=== PATIENT | male | born 1955 | race Caucasian/White ===

== ENCOUNTER 2024-04-27 20:41 | Emergency (ER) | payer MEDICARE, SELFPAY ==
[2024-04-27 20:43] VITALS: BP 106/70; PULSE 110; TEMP 37.1; O2SAT 96; BMI 26.4
--- NOTE | 2024-04-27 20:56 | XR_ITS ---
The [address] [address] Patient Name: KRISTOFER MOSES MRN: [id number] date: 1955 Sex: M Assigned Patient Location: ER Current Patient Location: ER Accession/Order Number: [id number] Exam Date: 04/27/2024 21:44 Report Date: 04/27/2024 22:46 At the request of: NELLY CH Procedure: XR abdomen 1V XR abdomen 1V, 04/27/2024 8:44 PM CDT: History: poss constipation. Comparison: None. Technique: 1 view abdomen Findings: The bowel gas pattern is nonobstructive. There is no evidence of free intra-abdominal air. There is no evidence of organomegaly or abnormal intra-abdominal calcifications. There is a normal to moderate colonic stool burden. XR/XR abdomen 1V Impression: Nonobstructive bowel gas pattern without evidence of free air. Electronically authenticated by: ARGENIS OSBORNE Date: 04/27/2024 22:46
--- NOTE | 2024-04-27 21:11 | ED_ITS ---
HPI HPI - General Adult General Chief complaint: Wound/Laceration Stated complaint: RECTAL PAIN Time Seen by Provider: 04/27/24 20:50 Source: patient and medical record Mode of arrival: ambulance Limitations: no limitations History of Present Illness HPI narrative: 69-year-old male presents to the emergency department for pain in his perianal area. He is from [facility] and is transported here by ambulance. He reports that he has had some burning in his perianal area for the last day. He cannot provide a history of any bleeding or not. He denies abdominal pain. Related Data Allergies Allergy/AdvReac Type Severity Reaction Status Date / Time No Known Drug Allergies Allergy Verified 04/27/24 20:43 Opioid HPI Opioid Management Most Recent Opioid Data: Last Pain Scale 6 04/27/24 21:06 Last ED Pain Assessment 04/27/24 21:06 Review of Systems ROS Narrative Unobtainable, age Exam Narrative Exam Narrative: Nurses note and vital signs reviewed and patient is not hypoxic. General: The patient appears in no apparent distress. Skin: Warm, dry, no pallor noted. There is no rash noted. Head: Normocephalic, atraumatic Eye: Normal conjunctiva, no drainage Ears, Nose, Mouth, and Throat: oral mucosa is moist. Nares patent. Cardiovascular: Regular Rate and Rhythm Respiratory: Patient is in no distress, no accessory muscle use, lungs are clear to auscultation, no wheezing, rales or rhonchi Back: non-tender GI: Soft and nontender. Perianal area shows erythema but no hemorrhoid or fissure. There is a skin tag present. When he was rolled on his side and his perineal area was exposed he was having a bowel movement of soft brown stool. This was wiped away and the perianal was able to be examined and is as described. There is no skin breakdown. Musculoskeletal: The patient has no evidence of calf tenderness, no pitting edema, symmetrical pulses noted bilaterally Neurological: Awake and alert Psychiatric: Cooperative Constitutional Vital Signs, click to edit/add: Last Vital Signs Temp 98.7 F 04/27/24 20:43 Pulse 95 H 04/28/24 00:06 Resp 18 04/28/24 00:06 BP 122/78 04/28/24 00:06 Pulse Ox 94 L 04/28/24 00:06 O2 Del Method Room Air 04/28/24 00:06 Course Vital Signs Vital signs: Vital Signs Temperature 98.7 F 04/27/24 20:43 Pulse Rate 110 H 04/27/24 20:43 Respiratory Rate 20 04/27/24 20:43 Blood Pressure 106/70 04/27/24 20:43 Pulse Oximetry 96 04/27/24 20:43 Oxygen Delivery Method Room Air 04/27/24 20:43 Temperature 98.7 F 04/27/24 20:43 Pulse Rate 95 H 04/28/24 00:06 Respiratory Rate 18 04/28/24 00:06 Blood Pressure 122/78 04/28/24 00:06 Pulse Oximetry 94 L 04/28/24 00:06 Oxygen Delivery Method Room Air 04/28/24 00:06 Medical Decision Making MDM Narrative Medical decision making narrative: On exam there is minimal erythema in the perianal area. CAT scan shows no acute findings per radiologist. There are no hemorrhoids or fissures. Findings are discussed thoroughly with the patient's and the patient and he is released back to the long term. Differential Diagnosis Differential Diagnosis: Hemorrhoid, anal fissure, abscess Lab Data Lab results reviewed: Yes I reviewed the patient's lab results Labs: Lab Results 04/27/24 Range/Units 21:45 WBC 7.5 (4.0-11.0) 10^3/uL RBC 3.83 L (4.70-6.10) 10^6/uL Hgb 10.5 L (14.0-18.0) g/dL Hct 34.5 L (42.0-54.0) % MCV 90.1 (80.0-94.0) fL MCH 27.4 (25.9-34.0) pg MCHC 30.4 (29.9-35.2) g/dL RDW 17.2 H (11.0-15.0) % Plt Count 392 (150-450) 10^3/uL MPV 9.0 L (9.5-13.5) fL Neut % (Auto) 74.3 (43.0-75.0) % Lymph % (Auto) 13.0 L (20.5-60.0) % [place] % (Auto) 8.1 (1.7-12.0) % Eos % (Auto) 3.6 (0.9-7.0) % Baso % (Auto) 0.7 (0.2-2.0) % Neut # (Auto) 5.5 (1.4-6.5) 10^3/uL Lymph # (Auto) 1.0 L (1.2-3.8) 10^3/uL [place] # (Auto) 0.6 (0.3-0.8) 10^3/uL Eos # (Auto) 0.3 (0.0-0.7) 10^3/uL Baso # (Auto) 0.1 (0.0-0.1) 10^3/uL Abs Immat Gran (auto) 0.02 (0.00-0.03) 10^3/uL Imm/Tot Granulo (auto) 0.3 (0.0-0.5) % Sodium 136 (136-145) mmol/L Potassium 4.0 (3.5-5.1) mmol/L Chloride 102 (98-107) mmol/L Carbon Dioxide 27.5 (21.0-32.0) mmol/L Anion Gap 10.5 BUN 15.0 (7.0-18.0) mg/dL Creatinine 0.75 (0.70-1.30) mg/dL Est GFR ( Amer) >60 (>=60) Est GFR (Non-Af Amer) >60 (>=60) BUN/Creatinine Ratio 20.0 Glucose 154 H (74-106) mg/dL Calcium 8.8 (8.5-10.1) mg/dL Imaging Data CT scan - abdomen: Radiologist's impression: ITS Impressions Abdomen X-Ray 04/27/24 20:56 Impression: Nonobstructive bowel gas pattern without evidence of free air. Electronically authenticated by: ARGENIS OSBORNE Date: 04/27/2024 22:46 Abdomen/Pelvis CT 04/27/24 22:36 IMPRESSION: 1. Multiple bladder stones in the lumen of the bladder. 2. Bilateral renal cysts. 3. Nonobstructive left lower pole nephrolithiasis and right midpole nephrolithiasis. No hydronephrosis. Electronically authenticated by: ARGENIS OSBORNE Date: 04/27/2024 23:47 Discharge Plan Discharge Stand Alone Forms: Portal Instructions Chief Complaint: Wound/Laceration Clinical Impression: Perianal pain Patient Disposition: Home, Self-Care Time of Disposition Decision: 00:08 Condition: Good Mode of Transportation: Private Vehicle Print Language: [place]i Instructions: Rectal Pain (ED) Referrals: Hugh Osborne MD [Primary Care Provider] - 1 week
[2024-04-27 21:57] LABS: Basophils Absolute Auto 0.1 10^3/uL (0.0-0.1); Basophils Percent Auto 0.7 % (0.2-2.0); Eosinophils Absolute Auto 0.3 10^3/uL (0.0-0.7); Eosinophils Percent Auto 3.6 % (0.9-7.0); Hematocrit 34.5 % (42.0-54.0); Hemoglobin 10.5 g/dL (14.0-18.0); Immature Granulocytes Abs Auto 0.02 10^3/uL (0.00-0.03); Immature Granulocytes Pct Auto 0.3 % (0.0-0.5); Mean Corpuscular HGB Conc 30.4 g/dL (29.9-35.2); Mean Corpuscular Hemoglobin 27.4 pg (25.9-34.0); Mean Corpuscular Volume 90.1 fL (80.0-94.0); Monocytes Absolute Auto 0.6 10^3/uL (0.3-0.8); Monocytes Percent Auto 8.1 % (1.7-12.0); Neutrophils Absolute Auto 5.5 10^3/uL (1.4-6.5); Neutrophils Percent Auto 74.3 % (43.0-75.0); Platelet Count 392 10^3/uL (150-450); Red Blood Count 3.83 10^6/uL (4.70-6.10); Red Cell Distribution Width 17.2 % (11.0-15.0); White Blood Count 7.5 10^3/uL (4.0-11.0)
[2024-04-27 22:06] LABS: Anion Gap 10.5; Calcium 8.8 mg/dL (8.5-10.1); Carbon Dioxide 27.5 mmol/L (21.0-32.0); Chloride 102 mmol/L (98-107); Estimated GFR (African America >60 (>=60); Estimated GFR (Non-African Ame >60 (>=60); Glucose 154 mg/dL (74-106); Sodium 136 mmol/L (136-145)
[2024-04-27] MEDS: LIDOCAINE VISCOUS 2% 15 ML SOLUTION TOPICAL (22:23)
[2024-04-27 22:29] VITALS: BP 117/79; PULSE 105; O2SAT 95
--- NOTE | 2024-04-27 22:36 | CT_ITS ---
The [address] [address] Patient Name: KRISTOFER MOSES MRN: [id number] date: 1955 Sex: M Assigned Patient Location: ER Current Patient Location: Accession/Order Number: [id number] Exam Date: 04/27/2024 23:05 Report Date: 04/27/2024 23:47 At the request of: NELLY CH Procedure: CT abdomen pelvis w con EXAM: CT abdomen pelvis w con HISTORY: pain COMPARISON: None. TECHNIQUE: IV contrast enhanced CT imaging of the abdomen and pelvis. This CT exam was performed using one or more of the following dose reduction techniques: Automated exposure control, adjustment of the mA and/or KV according to patient size, or use of iterative reconstruction technique. Unless otherwise stated, incidental findings do not require dedicated follow-up imaging. FINDINGS: The exam is limited by patient motion artifact. There is bibasilar atelectasis. The heart size is normal. The liver, spleen, pancreas, adrenal glands, and kidneys demonstrate no acute abnormality. There are low-attenuation renal cysts bilaterally. There are bilateral nonobstructing renal calculi. The gallbladder is distended without biliary duct dilatation. The bowel is unobstructed. The appendix is normal. The bladder is distended and contains stones within the dependent portion. There is no free fluid or free air in the abdomen or pelvis. The bones are intact without acute abnormality. There is degenerative disc disease of the lumbar spine. There is atherosclerosis of the abdominal aorta. CT/CT abdomen pelvis w con IMPRESSION: 1. Multiple bladder stones in the lumen of the bladder. 2. Bilateral renal cysts. 3. Nonobstructive left lower pole nephrolithiasis and right midpole nephrolithiasis. No hydronephrosis. Electronically authenticated by: ARGENIS OSBORNE Date: 04/27/2024 23:47
[2024-04-28 00:06] VITALS: BP 122/78; PULSE 95; O2SAT 94
[2024-04-28] MEDS: MORPHINE SULFATE 4 MG/ML VIAL IV (00:16)
--- NOTE | 2024-04-28 01:06 | PC.NURSE ---
Report called to Melanie at [facility], she is aware of 30-45 minute ETA for transport.
== END 2024-04-28 01:38 | disposition home or self-care (01) ==
PROVIDERS: Emergency Provider Emergency Medicine; PCP Family Medicine
DX: K62.89 Other specified diseases of anus and rectum (principal)
CPT/HCPCS: 36415; 74018; 74177; 80048; 85025; 96374; 99285; J2270; Q9967